=== PATIENT | male | born 1990 | race American Indian/Alaskan Native ===

== ENCOUNTER 2021-09-03 20:10 | Emergency (ER) | payer SELFPAY ==
[2021-09-03 20:34] VITALS: BP 153/85
[2021-09-03] MEDS ORDERED: SODIUM CHLORIDE 0.9% 1000 ML 1,000 ML IV ONE (22:10)
[2021-09-03] MEDS ORDERED: LORazepam 2 MG/ML VIAL IV PRN (22:10)
[2021-09-03] MEDS ORDERED: ACETAMINOPHEN 325 MG TAB PO ONE (22:26)
--- NOTE | 2021-09-03 22:30 | Emergency Department Report ---
ED General Adult HPI - General Chief complaint: Abdominal Pain Stated complaint: ABD PAIN Time Seen by Provider: 09/03/21 21:51 Source: patient Mode of arrival: Ambulatory Limitations: No Limitations - History of Present Illness Initial comments: 30-year-old male with a past medical history of anxiety presents to the ER today with complaints of upper abdominal pain, cough, and chest pain secondary to his coughing. Patient states that symptoms started early this morning and he feels like is getting worse. He states that he is cough is mainly dry but sometimes it has been productive and he also reports chest pain mainly when he coughs. He denies any wheezing, or shortness of breath. he also reports sore throat but no other URI symptoms. He denies any nausea, vomiting constipation. He states that he has chronic diarrhea which has not worsened recently. He reports objective fever and chills. He states that he has not taken any of the COVID-19 vaccines. He states there have been a few coworkers at his job who have been diagnosed with Covid, but he has not been directly around him. He has not been traveling. He denies any illicit drug use or alcohol abuse. MD Complaint: Abdominal pain/Chest pain/Cough -: Gradual, This morning - Related Data Previous Rx's Medication Instructions Recorded Last Taken Type Benzonatate [Tessalon Perles] 100 mg PO Q8HR PRN #30 capsule 09/04/21 Unknown Rx Ibuprofen [Motrin] 600 mg PO Q8H PRN #30 tablet 09/04/21 Unknown Rx Allergies Allergy/AdvReac Type Severity Reaction Status Date / Time No Known Allergies Allergy Verified 09/03/21 20:33 ED Review of Systems ROS: Stated complaint: ABD PAIN Other details as noted in HPI Comment: All other systems reviewed and negative Constitutional: chills, fever Eyes: denies: eye pain, eye discharge, vision change ENT: denies: ear pain, throat pain, dental pain, hearing loss, epistaxis Respiratory: cough. denies: shortness of breath, SOB with exertion, SOB at rest, stridor, wheezing Cardiovascular: chest pain (Secondary to cough) Gastrointestinal: abdominal pain. denies: diarrhea, constipation, hematemesis, melena, hematochezia Genitourinary: denies: urgency, dysuria, frequency, hematuria, discharge, testicular pain, testicular mass Skin: denies: rash, lesions, change in color, change in hair/nails, pruritus Neurological: denies: headache, weakness, numbness, paresthesias, confusion, abnormal gait, vertigo Psychiatric: denies: anxiety, depression, auditory hallucinations, visual hallucinations, homicidal thoughts, suicidal thoughts Hematological/Lymphatic: denies: easy bleeding, easy bruising, swollen glands ED Past Medical Hx - Past Medical History Previous Medical History?: No - Medications Home Medications: Home Medications Medication Instructions Recorded Confirmed Last Taken Type Benzonatate [Tessalon Perles] 100 mg PO Q8HR PRN #30 capsule 09/04/21 Unknown Rx Ibuprofen [Motrin] 600 mg PO Q8H PRN #30 tablet 09/04/21 Unknown Rx ED Physical Exam - General Limitations: No Limitations General appearance: alert, in no apparent distress, anxious - Head Head exam: Present: atraumatic, normocephalic, normal inspection - Eye Eye exam: Present: normal appearance, PERRL, EOMI Pupils: Present: normal accommodation - ENT ENT exam: Present: normal exam, mucous membranes moist - Neck Neck exam: Present: normal inspection, full ROM - Respiratory Respiratory exam: Present: normal lung sounds bilaterally. Absent: respiratory distress, wheezes, rales, rhonchi, stridor - Cardiovascular Cardiovascular Exam: Present: regular rate, normal rhythm, tachycardia, normal heart sounds - GI/Abdominal GI/Abdominal exam: Present: soft. Absent: distended, tenderness, guarding, rebound, rigid - Neurological Exam Neurological exam: Present: alert, oriented X3, CN II-XII intact, normal gait - Psychiatric Psychiatric exam: Present: normal affect, normal mood - Skin Skin exam: Present: intact ED Course Vital Signs 09/03/21 20:33 Temperature 99.5 F Pulse Rate 103 H Respiratory 18 Rate Blood Pressure 153/85 [Right] O2 Sat by Pulse 99 Oximetry ED Medical Decision Making - Lab Data Result diagrams: 09/03/21 22:45 09/03/21 22:45 - EKG Data EKG shows normal: sinus rhythm Rate: normal (99) - EKG Data Interpretation: no acute changes - Radiology Data Radiology results: report reviewed [facility] [address] [place] [address] XRay Report Signed Patient: BRANDON CHILEL MR#: [id number] : 1990 Acct:[id number] Age/Sex: 30 / M ADM Date: 09/03/21 Loc: ED Attending Dr: Ordering Physician: DIANA MCFADDEN Date of Service: 09/03/21 Procedure(s): XR chest routine 2V Accession Number(s): [id number] cc: DIANA MCFADDEN Fluoro Time In Minutes: CHEST 2 VIEWS INDICATION / CLINICAL INFORMATION: Cough. COMPARISON: None available. FINDINGS: SUPPORT DEVICES: None. HEART / MEDIASTINUM: No significant abnormality. LUNGS / PLEURA: No significant pulmonary or pleural abnormality. No pneumothorax. ADDITIONAL FINDINGS: No significant additional findings. IMPRESSION: 1. No acute findings. Signer Name: Rock Krishnamurthy MD Signed: 09/03/2021 10:37 PM Workstation Name: [id number] Transcribed By: TL Dictated By: Rock Krishnamurthy MD Electronically Authenticated By: Rock Krishnamurthy MD Signed Date/Time: 09/03/212236 DD/ 35 TD/TT: - Medical Decision Making 1320: Patient currently resting comfortably. He appears to have calmed down after receiving IV fluids and Ativan. He is currently not toxic, not in any acute pain or respiratory distress, he is neurologically intact and with a normal gait. He has a soft nontender abdomen. Chest x-ray shows nothing acute today. EKG does not show any STEMI, acute ischemic changes or any significant dysrhythmias. All his labs reviewed, BUN and creatinine was slightly elevated, but the remainder of his CMP was unremarkable and his UDS was positive for amphetamines. His history, diagnostic testing, and current condition does not suggest MO, unstable angina, pneumothorax, severe pneumonia, appendicitis, acute cholecystitis, bowel perforation, sepsis or any other emergent conditions warranting any additional testing, or admission at this time. Discussed all results with patient. Recommend that he increase his water intake, but also did recommend an outpatient COVID-19 test, as I suspect that his symptoms could be viral in nature and Covid is a possibility. Patient expressed understanding for instructions and agree with plan. Patient stable at time of discharge. Critical care attestation.: If time is entered above; I have spent that time in minutes in the direct care of this critically ill patient, excluding procedure time. ED Disposition Clinical Impression: Viral illness, Upper abdominal pain, Suspected COVID-19 virus infection, Anxiety Disposition: 01 HOME / SELF CARE / HOMELESS Is pt being admited?: No Does the pt Need Aspirin: No Condition: Stable Instructions: Abdominal Pain, Adult, Viral Illness, Adult Additional Instructions: I recommend that you take an COVID-19 test at one of the local pharmacies or urgent care when you leave the ER as the symptoms could also be related to COVID-19. Take the Tessalon Perles as prescribed to help with your cough and you can take the ibuprofen as prescribed to help with any pain. You can also alternate ibuprofen with Tylenol to help with pain and fever. Recommend that you drink lots of fluid. I recommend that you quarantine at home until you get the results of your COVID-19 test. Follow-up closely with your PCP and also follow-up with PCP for continued monitoring of your anxiety and for any prescriptions if needed. Return to the ER if your symptoms changes or worsens in any way. Prescriptions: Ibuprofen [Motrin] 600 mg PO Q8H PRN #30 tablet PRN Reason: Pain Benzonatate [Tessalon Perles] 100 mg PO Q8HR PRN #30 capsule PRN Reason: Cough Referrals: CATY CORREIA MD [Staff Physician] - 3-5 Days BRAEDEN AVELAR MD [Staff Physician] - 3-5 Days Time of Disposition: 00:33 Print Language: YI
--- NOTE | 2021-09-03 22:41 | XRay Report ---
CHEST 2 VIEWS INDICATION / CLINICAL INFORMATION: Cough. COMPARISON: None available. FINDINGS: SUPPORT DEVICES: None. HEART / MEDIASTINUM: No significant abnormality. LUNGS / PLEURA: No significant pulmonary or pleural abnormality. No pneumothorax. ADDITIONAL FINDINGS: No significant additional findings. IMPRESSION: 1. No acute findings. Signer Name: Rock Krishnamurthy MD Signed: 09/03/2021 10:37 PM Workstation Name: [id number]
[2021-09-03 23:08] LABS: Basophils % (Auto) 0.7 % (0.0-1.8); Eosinophils % (Auto) 0.1 % (0.0-4.3); Hematocrit 45.8 % (35.5-45.6); Hemoglobin 15.4 gm/dl (11.8-15.2); Lymphocytes # (Auto) 1.2 K/mm3 (1.2-5.4); Lymphocytes % (Auto) 17.1 % (13.4-35.0); Mean Corpuscular HGB Conc 34 % (32-34); Mean Corpuscular Volume 93 fl (84-94); Monocytes # (Auto) 0.4 K/mm3 (0.0-0.8); Monocytes % (Auto) 6.2 % (0.0-7.3); Platelet Count 231 K/mm3 (140-440); Red Blood Count 4.93 M/mm3 (3.65-5.03)
[2021-09-03 23:30] LABS: Albumin 4.7 g/dL (3.9-5); Calcium 9.9 mg/dL (8.4-10.2)
[2021-09-04 00:19] LABS: Amphetamine Screen,Urine PRESUMPTIVE POSITIVE; Benzodiazepines Screen,Urine PRESUMPTIVE NEGATIVE; Cannabinoid Screen,Urine PRESUMPTIVE NEGATIVE; Cocaine Screen,Urine PRESUMPTIVE NEGATIVE; Methadone Screen,Urine PRESUMPTIVE NEGATIVE; Opiate Screen,Urine PRESUMPTIVE NEGATIVE
--- NOTE | 2021-09-10 14:33 | Electrocardiograph Report ---
[facility] Test Date: 2021-09-03 Test Time: 23:33:08 Pat Name: BRANDON CHILEL Department: Room: Gender: M Senior Quality Manager: as : 1990 Requested By: DIANA MCFADDEN Order Number: [id number] Reading MD: Larisa Mckinley Measurements Intervals [place] Rate: 99 P: 74 [place]: 157 QRS: 82 QRSD: 87 T: 57 QT: 365 QTc: 470 Interpretive Statements Sinus rhythm Very poor quality ECG No previous ECG available for comparison Electronically Signed On 09-10-2021 14:33:01 EDT by Larisa Mckinley
== END 2021-09-04 02:04 | disposition home or self-care (01) ==
LOC: EDBD → ED 20:10
DX: B34.9 Viral infection, unspecified (principal); R10.10 Upper abdominal pain, unspecified; F41.9 Anxiety disorder, unspecified; Z20.822 Contact with and (suspected) exposure to COVID-19; Z79.899 Other long term (current) drug therapy
CPT/HCPCS: 36415; 71046; 80053; 80307; 84443; 84484; 85025; 87116; 87430; 93005; 96361; 96374; 99284; J2060; J7030; 96365